=== PATIENT | female | born 1995 | race Caucasian/White ===

== ENCOUNTER → 2019-05-28 08:00 | Outpatient (CLI) | payer OTHER, SELFPAY ==
--- NOTE | ~2019-05-28 | US_ITS ---
US breast LT complete DATE: 05/28/2019 08:19 INDICATION: Palpable left breast lump TECHNIQUE: Real-time and color flow imaging of the complete left breast COMPARISON: None FINDINGS: There are 4 circumscribed heterogeneous hypoechoic solid masses with internal vascularity, the largest with through transmission: There are 2 contiguous lesions at 2:00 7 cm from the nipple measuring 1.4 x 0.8 x 2 cm and 1.3 x 1.9 x 1.6 cm. At 2:00 9 cm from the nipple there is a 7 x 3 x 8 mm similar lesion At 12:00 9 cm from the nipple there is a similar parallel circumscribed hypoechoic solid 7 x 1.5 x 1. 3 cm lesion. These are likely multiple benign fibroadenomas. No suspicious solid lesion or shadowing is detected. IMPRESSION: BI-RADS Category 2: Benign findings Recommendation: Routine annual mammographic screening beginning at age 40 Reviewed, dictated and finalized at [facility]. Reviewed, dictated and finalized at [facility]. PING AND RECEIVING ASSISTANT
== END ==
PROVIDERS: PCP Family Medicine; Visit Provider Nurse Practitioner
DX: N63.23 Unspecified lump in the left breast, lower outer quadrant (principal)
CPT/HCPCS: 76641

== ENCOUNTER → 2020-09-29 09:23 | Outpatient (CLI) | payer OTHER, SELFPAY ==
--- NOTE | ~2020-09-29 | US_ITS ---
EXAMINATION: US thyroid EXAM DATE: 09/29/2020 09:38 INDICATION: Nontoxic single thyroid nodule TECHNIQUE: Multiple grayscale and Doppler images of the thyroid were obtained (by a technologist who performed the scan) and subsequently reviewed. Individual nodules and recommendations may be reporte d in accordance with TI-RADS system as designated by the 2017 ACR White Paper TI-RADS committee. The re is no prior study for comparison. FINDINGS: The right thyroid lobe measures 4.9 x 2.3 x 2.0 cm, the left measuring 2.8 x 1.1 x 1.1 cm. There is h omogeneous thyroid echogenicity. Several thyroid nodules. Nodule in the mid pole of right thyroid lobe superficially measuring 2.0 x 1.5 x 2.3 cm, solid (2 poi nts), hypoechoic (2 points), wider than tall, smooth well defined margin, without echogenic foci, cat egory TR4 for this nodule. This nodule is large enough to recommend ultrasound-guided biopsy. Another right thyroid lobe nodule is subcentimeter in size. IMPRESSION: 1. Right thyroid lobe nodule large enough to recommend ultrasound-guided biopsy. Reviewed, dictated and finalized at [facility]. IMPRESSION: 1. Right thyroid lobe nodule large enough to recommend ultrasound-guided biops y.
== END ==
PROVIDERS: Visit Provider Nurse Practitioner
DX: E04.1 Nontoxic single thyroid nodule (principal)
CPT/HCPCS: 76536

== ENCOUNTER → 2020-10-14 08:56 | Outpatient (CLI) | payer OTHER, SELFPAY ==
--- NOTE | ~2020-10-14 | XR_ITS ---
EXAMINATION: XR sacrum coccyx min 2V INDICATION: Low back pain, sacrococcygeal disorders not elsewhere classified TECHNIQUE: Three views of the sacrum and coccyx are obtained. COMPARISON: None available FINDINGS: There is mild lumbar spondylosis at L5-S1. No fracture is. Phleboliths are noted in the pel vis. The sacroiliac joints appear unremarkable. IMPRESSION: 1. No acute osseous abnormality. Reviewed, dictated and finalized at [facility].
--- NOTE | ~2020-10-14 | XR_ITS ---
EXAMINATION: XR lumbar spine 2-3V DATE: 10/14/2020 09:17 INDICATION: Low back pain TECHNIQUE: Anteroposterior and lateral views of the lumbar spine, and cone-down lateral view of the l umbosacral junction were obtained. COMPARISON: None. FINDINGS: There are 3 mm of retrolisthesis of L5 on S1. The vertebral body alignment is otherwise forrest ntained. The vertebral body heights are normal. There is mild loss of intervertebral disc space heigh t at L5-S1. The remaining intervertebral disc spaces are normal. Small degenerative osteophytes proje ct from the anterior endplates of multiple vertebral bodies. IMPRESSION: 1. Mild lower lumbar spondylosis. Reviewed, dictated and finalized at [facility].
== END ==
PROVIDERS: Visit Provider Physician Assistant
DX: M47.817 Spondylosis without myelopathy or radiculopathy, lumbosacral region (principal)
CPT/HCPCS: 72100; 72220

== ENCOUNTER → 2022-02-28 15:46 | Outpatient (CLI) | payer OTHER, SELFPAY ==
--- NOTE | ~2022-02-28 | US_ITS ---
EXAMINATION: US thyroid DATE: 02/28/2022 16:03 INDICATION: Thyroid nodule. TECHNIQUE: Multiple ultrasound images of the thyroid were obtained. COMPARISON: Thyroid ultrasound 09/29/20 FINDINGS: The right thyroid lobe measures 4.5 x 1.5 x 1.7 cm. The left thyroid lobe measures 3.1 x 0.8 x 0.9 c m. In the right thyroid lobe, there is a 2.3 cm hypoechoic, solid, wider than tall nodule with bobby h margin without echogenic foci (TI-RADS TR4). In the right thyroid lobe, there is a 5 mm solid, hypo echoic, wider than tall nodule with smooth margin without echogenic foci (TR4). IMPRESSION: 1. Stable multinodular goiter. Ultrasound-guided fine-needle aspiration of the 2.3 cm right thyroid n odule is recommended. Reviewed, dictated and finalized at [facility]. DATA SOLUTIONS ARCHITECT IMPRESSION: 1. Stable multinodular goiter. Ultrasound-guided fine-needle aspiration of the 2.3 cm right thyroid nodule is recommended.
== END ==
PROVIDERS: PCP Advanced Practice Midwife; Visit Provider Advanced Practice Midwife
DX: E04.2 Nontoxic multinodular goiter (principal)
CPT/HCPCS: 76536

== ENCOUNTER 2022-04-27 11:59 | Outpatient (CLI) | payer OTHER, SELFPAY ==
--- NOTE | ~2022-04-27 | US_ITS ---
EXAMINATION: US FNA w image guidance DATE: 04/27/2022 13:53 INDICATION: Nontoxic single thyroid nodule. TECHNIQUE: The procedure and its benefits and risks were discussed with the patient. Risks specifically discusse d included bleeding. The patient verbalized understanding of the risks and agreed to proceed. The nec k was prepped and draped in the usual sterile manner. 1% lidocaine was used for local anesthesia. 6 passes were made with a 25G needle into the lesion under ultrasound guidance. There were no immedia te complications. FINDINGS: Grayscale ultrasound images demonstrate needles advanced into a 2.5 cm nodule in right thyroid lobe f or biopsy. IMPRESSION: 1. Ultrasound-guided fine needle aspiration of a right thyroid nodule. Reviewed, dictated and finalized at [facility]. NE PAINTER
== END 2022-04-27 12:00 | disposition home or self-care (01) ==
PROVIDERS: PCP Family Medicine; Visit Provider Internal Medicine Endocrinology, Diabetes & Metabolism
DX: E04.1 Nontoxic single thyroid nodule (principal)
CPT/HCPCS: 10005; 88173; 88305

== ENCOUNTER 2023-09-05 07:28 | Outpatient (CLI) | payer OTHER, SELFPAY ==
--- NOTE | ~2023-09-05 | US_ITS ---
Thyroid ultrasound. Clinical History: Thyroid nodule Findings: Real-time sonography of the thyroid gland was performed. The right lobe measures 5.7 x 2.5 x 2.0 cm. The left lobe measures 3.1 x 1.3 x 1.1 cm. The isthmus is 3 mm in AP diameter. There is a 2.6 x 1.9 x 2.6 cm solid, isoechoic to minimally hypoechoic nodule at the right mid to low er pole. There is an additional 0.6 cm hypoechoic solid nodule at the lateral right midpole. Impression: 2.6 cm TI-RADS 4 nodule in the right thyroid lobe, as detailed above. FNA advised to establish histol ogic diagnosis.. Additional subcentimeter nodule, as noted above in the right thyroid lobe. Given small size, no furth er follow-up required for this lesion. Reviewed, dictated and finalized at [facility]. Impression: 2.6 cm TI-RADS 4 nodule in the right thyroid lobe, as detailed above. FNA advis ed to establish histologic diagnosis.. Additional subcentimeter nodule, as noted above in the right thyroid lobe. Give n small size, no further follow-up required for this lesion.
== END 2023-09-05 07:29 ==
PROVIDERS: PCP Family Medicine; Visit Provider Nurse Practitioner
DX: E04.2 Nontoxic multinodular goiter (principal)
CPT/HCPCS: 76536

== ENCOUNTER 2023-10-30 13:45 | Outpatient (CLI) | payer OTHER, SELFPAY ==
--- NOTE | ~2023-10-30 | NM_ITS ---
EXAMINATION: NM thyroid scan w uptake DATE: 10/31/2023 14:18 INDICATION: Thyrotoxicosis with nontoxic single thyroid nodule COMPARISON: Ultrasound dated 09/05/2023 TECHNIQUE: 351 microcuries [id number] was administered orally in capsule form. Scintigraphic images of th e thyroid gland were obtained at 24 hours. Thyroid uptake was calculated by the technologist. FINDINGS: The thyroid uptake is 27.9% (normal 10-30%), with the right lobe measuring 25.9% uptake and the left 3.5%. The uptake in the right uptake localizes to the mid to inferior gland at the site of the previo usly noted 2.6 cm right thyroid nodule. IMPRESSION: 1. Hyperfunctioning nodule in the mid to inferior right thyroid which contributes partially 90% to t otal thyroid uptake with suppression of uptake in the remainder of the thyroid. Reviewed, dictated and finalized at [facility]. IMPRESSION: 1. Hyperfunctioning nodule in the mid to inferior right thyroid which contribu andreea partially 90% to total thyroid uptake with suppression of uptake in the rem ainder of the thyroid.
== END 2023-10-30 13:46 | disposition home or self-care (01) ==
PROVIDERS: PCP Family Medicine; Visit Provider Internal Medicine Endocrinology, Diabetes & Metabolism
DX: E05.10 Thyrotoxicosis with toxic single thyroid nodule without thyrotoxic crisis or storm (principal)
CPT/HCPCS: 78014; A9516

== ENCOUNTER 2024-03-05 08:28 | Outpatient (CLI) | payer OTHER, SELFPAY ==
--- NOTE | ~2024-03-05 | US_ITS ---
EXAMINATION: US thyroid DATE: 03/05/2024 08:49 INDICATION: Thyroid nodule. Thyroid toxicosis. TECHNIQUE: Multiple ultrasound images of the thyroid were obtained. COMPARISON: Ultrasound 09/05/2023, 09/29/2020, thyroid scintigraphy 10/31/2023 FINDINGS: The right thyroid lobe measures 5.5 x 2.2 x 1.2 cm. The left thyroid lobe measures 2.8 x 1.0 x 0.9 c m. In the right thyroid lobe, there is a 2.7 cm solid, hypoechoic, wider than tall nodule with bobby h margin without echogenic foci (TI-RADS TR4), stable from 09/29/20. This nodule was hyperactive on sc intigraphy on 10/31/2023. Biopsy on 04/27/2022 was nondiagnostic. In the right thyroid lobe, there is a 6 mm solid, hypoechoic, wider than tall nodule with smooth margin and punctate echogenic foci (TR5), stable from 09/29/20. IMPRESSION: 1. Thyroid nodules. Thyroid ultrasound is recommended in one year. Reviewed, dictated and finalized at location [facility]. ENT TRANSPORTER
== END 2024-03-05 08:29 | disposition home or self-care (01) ==
PROVIDERS: PCP Family Medicine; Visit Provider Internal Medicine Endocrinology, Diabetes & Metabolism
DX: E05.10 Thyrotoxicosis with toxic single thyroid nodule without thyrotoxic crisis or storm (principal); E04.2 Nontoxic multinodular goiter
CPT/HCPCS: 76536